=== PATIENT | male | born 1960 | race Caucasian/White ===

== ENCOUNTER → 2016-12-25 | Outpatient (CLI) | payer OTHER ==
[~2016-12-25] MED LIST: ASPI81TA28 PO; CYCL10TA6 PO; MULT-506 PO; OXYC1TAB3 PO
[2016-12-25 11:20] LABS: BLOOD UREA NITROGEN 18 mg/dl (7-18); BUN/CREATININE RATIO 21.4 (10-20); CARBON DIOXIDE 30 mmol/L (21-32); CHLORIDE 106 mmol/L (98-107); CREATININE 0.82 mg/dl (0.60-1.40); GLUCOSE 86 mg/dl (70-99); SODIUM 141 mmol/L (136-145)
[2016-12-25 11:33] LABS: CHOLESTEROL 173 mg/dl (0-200); CHOLESTEROL/HDL RATIO 3.5; HDL CHOLESTEROL 50 mg/dl; LDL CHOLESTEROL CALCULATED 105 mg/dl; TRIGLYCERIDES 91 mg/dl (0-150); VERY LOW DENSITY LIPOPROT CALC 18 mg/dl
== END | disposition home or self-care (01) ==
LOC: C.LABBC 08:35
PROVIDERS: ATTEND Internal Medicine
DX: R68.82 Decreased libido (principal); Z13.1 Encounter for screening for diabetes mellitus; Z13.220 Encounter for screening for lipoid disorders

== ENCOUNTER 2017-06-07 10:07 | Emergency (ER) | payer OTHER ==
[2017-06-07 10:13] VITALS: TEMP 36.6; Ht 188 cm
[2017-06-07] MEDS ORDERED: KETOROLAC TROMETHAMINE 30 MG/ML VIAL IV STA (10:32)
[2017-06-07] MEDS ORDERED: ONDANSETRON INJ 2 MG/ML 2 ML VIAL IV STA (10:32)
[2017-06-07] MEDS ORDERED: CYCLOBENZAPRINE HCL 10 MG TAB PO STA (10:32)
[2017-06-07] MEDS ORDERED: MoRPHine SULFATE 4 MG/ML 1 ML CARP\\VIAL IV STA (10:32)
--- NOTE | 2017-06-07 10:36 | EMERGENCY ROOM VISIT NOTE ---
History Report prepared by Disha: Tali Falcon Under the Supervision of: Dr. Kevan Heard M.D. First contact with patient: 10:26 Chief Complaint: BACK PAIN Stated Complaint: BACK PAIN History of Present Illness The patient is a 57 year old male who presents to the Emergency Room with complaints of worsening lower back pain that began two nights ago. He currently rates his discomfort as a 2/10 in severity. The patient states that Tuesday evening he was putting a baby walker in the basement and states that he felt a disc slip. He states that he immediately laid down on the floor to help alleviate his symptoms. The patient states that yesterday morning he felt somewhat better, but still noted pain. He localizes the pain just right of his lumbar spine. The patient describes his pain as a stabbing pain. He states that he has had similar pain in the past, but denies anything this severe. The patient denies any previous back surgery. He denies any loss of control of his bowel or bladder. The patient states that movement worsens his pain. He denies the pain radiating down his leg. The patient states that he took 600 mg of Ibuprofen this morning that has slightly alleviated his pain. Source of History: patient Onset: two nights ago Position: back (lower) Symptom Intensity: 2/10 Quality: stabbing Timing: other (persistent) Modifying Factors (Worsening): movement Modifying Factors (Relieving): ibuprofen Review of Systems See HPI for pertinent positives & negatives. A total of 10 systems reviewed and were otherwise negative. Past Medical & Surgical Medical Problems: (1) Stroke Surgical Problems: (1) Hx of right knee surgery Family History Cancer Hypertension Social History Smoking Status: Never Smoker Smokeless Tobacco Use: No Alcohol Use: occasionally Marital Status: Housing Status: lives with significant other Occupation Status: employed Current/Historical Medications Scheduled Aspirin (Aspirin Ec), 162 MG PO DAILY Multivitamin (Multivitamin), 1 TAB PO DAILY Scheduled PRN Cyclobenzaprine Hcl (Flexeril), 10 MG PO TID PRN for Muscle Spasms Oxycodone Ir (Roxicodone Ir), 1-2 TAB PO Q4H PRN for Pain Allergies Coded Allergies: No Known Allergies (Unverified , 06/07/17) Physical Exam Vital Signs Date Time Temp Pulse Resp B/P (MAP) Pulse Ox O2 Delivery O2 Flow Rate FiO2 06/07/17 12:31 59 18 117/76 95 Room Air 06/07/17 11:25 63 16 127/80 98 Room Air 06/07/17 10:13 36.6 88 16 121/79 99 Room Air Physical Exam GENERAL: Patient is in no acute distress. HEENT: No acute trauma, normocephalic atraumatic, mucous membranes moist, no nasal congestion, no scleral icterus. NECK: No stridor, no adenopathy, no meningismus, trachea is midline. LUNGS: Clear to auscultation bilaterally, no wheeze, no rhonchi, breath sounds equal. HEART: Without murmurs gallops or rubs, regular rate and rhythm. ABDOMEN: Soft, nontender, bowel sounds positive, no hernias, no peritonitis. BACK: No spinal process tenderness or jayden stepoff, tender to palpate mainly the right lumbar musculature. No rash. EXTREMITIES: No cyanosis or edema, full range of motion of all the joints without pain or difficulty, no signs for acute trauma. NEUROLOGIC: Oriented x 3, no acute motor or sensory deficits, no focal weakness. 2/4 patellar and Achilles reflexes bilaterally. SKIN: No rash, no jaundice, no diaphoresis. Medical Decision & Procedures ER Provider Diagnostic Interpretation: Radiology results as stated below per my review and radiologist interpretation: L-SPINE MIN 4 VIEWS ROUTINE CLINICAL HISTORY: Low back pain. COMPARISON: None FINDINGS: Straightening of the normal lumbar lordosis is noted. No fracture or suspicious lesion is present. There is mild disc space narrowing at L5-S1. The bowel gas pattern is normal. IMPRESSION: 1. No lumbar spine fracture or subluxation. 2. Mild disc space narrowing at L5-S1. Electronically signed by: Von Camejo M.D. 06/07/2017 11:27 AM Dictated Date/Time: 06/07/2017 11:26 AM Medications Administered Medications (Trade) Dose Ordered Sig/Alida Route Start Time Stop Time Status Last Admin Dose Admin Ketorolac Tromethamine (Toradol Inj) 30 mg NOW STAT IV 06/07/17 10:32 06/07/17 10:34 DC 06/07/17 10:49 30 MG Morphine Sulfate (MoRPHine SULFATE INJ) 4 mg NOW STAT IV 06/07/17 10:32 06/07/17 10:34 DC 06/07/17 10:50 4 MG Ondansetron HCl (Zofran Inj) 4 mg NOW STAT IV 06/07/17 10:32 06/07/17 10:34 DC 06/07/17 10:49 4 MG Cyclobenzaprine HCl (Flexeril Tab) 10 mg NOW STAT PO 06/07/17 10:32 06/07/17 10:34 DC 06/07/17 10:49 10 MG ED Course 1027: The patient was evaluated in room B8. A complete history and physical exam was performed. 1032: Ordered Flexeril Tab 10 mg PO, Zofran Inj 4 mg IV, Morphine Sulfate 4 mg IV, Toradol Inj 30 mg IV. 1205: I reevaluated the patient and he is resting comfortably. I discussed the exam findings with him and I discussed the treatment plan. He verbalized complete understanding and agreement. He is ready to go home. Medical Decision The patient is a 57 year old male who presents to the ED with complaints of back pain. Differential diagnoses considered include musculoskeletal pain, fracture, dislocation, sciatica, herniated disc. The patient presents with lower back pain. He was stooping and setting something down when he felt something sort of pull in his back and he has had pain ever since. No difficulty with his bowel or bladder, no pain radiation down his legs. His pain worsens with movements especially when he tries to walk. Films of the lumbar spine were done, there was no fracture or significant bony dislocation. His reflexes were intact distally in both lower extremities. His pain did seem worse with position change. The patient received IV morphine, IV Toradol, IV Zofran. He was given oral Flexeril. He is being discharged with muscle relaxers, pain medication, anti- inflammatories; rest, massage, even physical therapy as an outpatient were suggested. The patient can return for worsening symptoms or if not improving. [place] Drug Monitoring Program Search Results: patient reviewed within database, no issues identified Medication Reconcilliation Current Medication List: was personally reviewed by me Impression Primary Impression: Lumbar back pain Scribe Attestation The scribe's documentation has been prepared under my direction and personally reviewed by me in its entirety. I confirm that the note above accurately reflects all work, treatment, procedures, and medical decision making performed by me. Departure Information Dispostion Home / Self-Care Prescriptions Cyclobenzaprine Hcl (FLEXERIL) 10 Mg Tab 10 MG PO TID Y for Muscle Spasms, #12 TAB Prov: Kevan Heard M.D. 06/07/17 Oxycodone Ir (Roxicodone Ir) 5 Mg Tab 1-2 TAB PO Q4H Y for Pain, #10 TAB Prov: Kevan Heard M.D. 06/07/17 Referrals ,Oleg Guan M.D. Forms HOME CARE DOCUMENTATION FORM, IMPORTANT VISIT INFORMATION Patient Instructions My [facility] Additional Instructions motrin 600 mg 3x per day for 5 days tylenol for addional pain control as directed oxy ir 1 tab every 4 hours for severe pain flexeril 1 tab up to 3x per day for muscle spasm rest heat, massage, gentle stretching follow with tommy walker for a recheck and possible PT referral
[2017-06-07] MEDS ORDERED: ASPI81TA28 PO (11:02)
[2017-06-07] MEDS ORDERED: MULT-506 PO (11:02)
--- NOTE | 2017-06-07 11:29 | DIAGNOSTIC IMAGING REPORT ---
L-SPINE MIN 4 VIEWS ROUTINE CLINICAL HISTORY: Low back pain. COMPARISON: None FINDINGS: Straightening of the normal lumbar lordosis is noted. No fracture or suspicious lesion is present. There is mild disc space narrowing at L5-S1. The bowel gas pattern is normal. IMPRESSION: 1. No lumbar spine fracture or subluxation. 2. Mild disc space narrowing at L5-S1. Electronically signed by: Von Camejo M.D. 06/07/2017 11:27 AM Dictated Date/Time: 06/07/2017 11:26 AM
[2017-06-07] MEDS ORDERED: CYCL10TA6 PO (12:22)
[2017-06-07] MEDS ORDERED: OXYC1TAB3 PO (12:22)
[2017-06-07 12:31] VITALS: BP 117/76; PULSE 59; O2SAT 95
== END 2017-06-07 12:39 | disposition home or self-care (01) ==
LOC: C.EDB 10:08
DX: M54.5 Low back pain (principal); Z86.73 Personal history of transient ischemic attack (TIA), and cerebral infarction without residual deficits; Z80.9 Family history of malignant neoplasm, unspecified; Z82.49 Family history of ischemic heart disease and other diseases of the circulatory system; Z79.82 Long term (current) use of aspirin

== ENCOUNTER → 2018-04-01 | Outpatient (CLI) | payer OTHER ==
[~2018-04-01] MED LIST changes: -CYCL10TA6 PO; -OXYC1TAB3 PO
[2018-04-01 10:58] LABS: BLOOD UREA NITROGEN 14 mg/dl (7-18); CALCIUM 8.9 mg/dl (8.5-10.1); CARBON DIOXIDE 29 mmol/L (21-32); CHOLESTEROL 189 mg/dl (0-200); CREATININE 0.79 mg/dl (0.60-1.40); GLUCOSE 84 mg/dl (70-99); LDL CHOLESTEROL CALCULATED 110 mg/dl; POTASSIUM 4.2 mmol/L (3.5-5.1); SODIUM 139 mmol/L (136-145)
== END | disposition home or self-care (01) ==
LOC: C.LAB1850 08:12
PROVIDERS: ATTEND Internal Medicine
DX: Z00.00 Encounter for general adult medical examination without abnormal findings (principal); R68.82 Decreased libido; Z13.220 Encounter for screening for lipoid disorders

== ENCOUNTER 2020-05-18 13:52 | Inpatient (IN) ==
--- NOTE | 2020-05-18 14:32 | CT Scan Report ---
CT OF THE HEAD WITHOUT CONTRAST CLINICAL HISTORY: Stroke Alert COMPARISON STUDY: No previous studies for comparison. CT DOSE: 614.27 mGy.cm TECHNIQUE: Helical axial images of the head were obtained without IV contrast. Automated exposure con trol was utilized for the study. A dose lowering technique was utilized adhering to the principles o f ALARA. FINDINGS: No acute intracranial hemorrhage, midline shift or mass effect is present. The brain volume is normal. Ventricular system is normal. The basilar cisterns are patent. Note is made of 2 hypodens e foci within the left parietal and frontal lobes there is associated mild volume loss. There are no findings to suggest acute dural sinus thrombosis or acute territorial infarct. There are no significa nt calvarial abnormalities. Visualized portions of the sinuses and mastoid are cells are clear. IMPRESSION: 1. No acute intracranial hemorrhage or mass effect. 2. Two small hypodense foci within the left frontal and parietal lobes with associated volume loss. T hese represent age indeterminate infarcts however the appearance favors subacute to chronic infarcts. ACT 112: Negative or not required by law. Electronically signed by: Von Camejo M.D. 05/18/2020 2:30 PM
[2020-05-18] MEDS ORDERED: OPTIRAY 320 125ml IV ONE (14:42)
[2020-05-18 14:43] LABS: Hematocrit (blood only) 47.3 % (42-52); Hemoglobin 16.4 g/dL (14.0-18.0); Mean Corpuscular Hemoglobin 32.4 pg (25-34); Mean Corpuscular Hgb Conc 34.7 g/dL (32-36); Mean Corpuscular Volume 93.5 fL (80-100); Mean Platelet Volume 9.3 fL (7.4-10.4); Platelet Count 210 K/uL (130-400); RDW Coefficient of Variation 13.1 % (11.5-14.5); RDW Standard Deviation 44.4 fL (36.4-46.3); Red Blood Count 5.06 M/uL (4.7-6.1); White Blood Count 5.84 K/uL (4.8-10.8)
[2020-05-18 14:55] LABS: INR 1.1 (0.9-1.1); Partial Thromboplastin Time 27.2 Seconds (21.0-31.0); Prothrombin Time 11.1 Seconds (9.0-12.0)
--- NOTE | 2020-05-18 14:56 | CT Scan Report ---
CT ANGIOGRAPHY OF THE NECK WITH CONTRAST CLINICAL HISTORY: Stroke. COMPARISON STUDY: No previous studies for comparison. Technique: CT angiography of the carotid and vertebral arteries was obtained using AlgEvolve 320 IV and 3D reconstruction on an independent workstation. NASCET criteria was utilized. Automated exposure c ontrol was utilized for the study. A dose lowering technique was utilized adhering to the principles of ALARA. CT DOSE: 650.05 mGy.cm Findings: Lung apices are clear. There is no cervical lymphadenopathy. There is no cervical spine fra cture. Note is made of mild plaque within the proximal bilateral internal carotid arteries without st enosis. There is no dissection within the major vessels of the neck. No intraluminal thrombus is note d. There is moderate stenosis at the origin of the left vertebral artery and mild stenosis at the chanelle gin the right vertebral artery. IMPRESSION: 1. Moderate stenosis at the origin of the left vertebral artery and mild stenosis at the origin of th e right vertebral artery. 2. Mild atherosclerotic plaque within the proximal bilateral internal carotid artery without associat ed stenosis. ACT 112: Negative or not required by law. Electronically signed by: Von Camejo M.D. 05/18/2020 2:54 PM
[2020-05-18 15:00] LABS: Albumin Level 4.2 gm/dl (3.4-5.0); BUN Creatinine Ratio 16.3 (10-20); Calcium 9.8 mg/dl (8.5-10.1); Creatinine Clr Calc Pharmacy 103.8 ml/min; Est GFR (African American) 108.2; Est GFR (Non-African American) 93.4; Magnesium 2.1 mg/dl (1.8-2.4); Potassium 3.9 mmol/L (3.5-5.1)
[2020-05-18 15:03] LABS: Albumin Globulin Ratio 1.2 (0.9-2); Globulin 3.5 gm/dl (2.5-4.0); Total Protein 7.7 gm/dl (6.4-8.2)
--- NOTE | 2020-05-18 15:06 | CT Scan Report ---
CTA ANGIOGRAPHY OF THE HEAD CLINICAL HISTORY: stroke COMPARISON STUDY: No previous studies for comparison. TECHNIQUE: Helical axial images of the head were obtained following uneventful intravenous administr ation of 120 cc of Optiray 320. Sagittal and coronal reconstructions were viewed as well as maximal i ntensity projections on an independent 3-D workstation. Automated exposure control was utilized for the study. A dose lowering technique was utilized adhering to the principles of ALARA. FINDINGS: No acute intracranial hemorrhage, midline shift or mass effect is present. 2 hypodensities within the left frontal and parietal lobes are again noted, as shown on head CT. Ventricular system i s normal. The basilar cisterns are patent. No central vessel lesion is noted. The bilateral M1, M2, A 1 and A2 segments are patent. There is there is moderate atherosclerotic plaque within bilateral cave rnous carotids without stenosis. The posterior circulation is intact. There is no dissection or aneur ysm within the intracranial vessels. IMPRESSION: 1. No central vessel occlusion. No intracranial aneurysm. 2. Two hypodensities within the left parietal and frontal lobes. These represent age indeterminate in farcts. ACT 112: Negative or not required by law. Electronically signed by: Von Camejo M.D. 05/18/2020 3:04 PM
--- NOTE | 2020-05-18 15:37 | XRay Report ---
XR chest 1V portable CLINICAL HISTORY: stroke alert COMPARISON STUDY: No previous studies for comparison. FINDINGS: Lung volumes are normal. Lungs are clear. There is no pneumothorax or pleural effusion. Car diac size is normal. Mediastinal contours are normal. There is no evidence for pulmonary edema. IMPRESSION: No acute cardiopulmonary findings. ACT 112: Negative or not required by law. Electronically signed by: Von Camejo M.D. 05/18/2020 3:36 PM
[2020-05-18] MEDS ORDERED: CLOPIDOGREL BISULFATE 300 MG TAB PO STA (15:54)
--- NOTE | 2020-05-18 17:15 | History & Physical Report ---
Date of Service May 18, 2020 Assessment & Plan (1) TIA (transient ischemic attack): Presented with 2 hours of left-sided facial numbness, facial droop, and slurred speech. With a history of CVA at age 35 of unknown etiology. Was on aspirin 162 mg once daily when symptoms occurred. No other risk factors for stroke known at this time. He could have occult atrial fibrillation especially given biatrial enlargement seen on ECG. Given that he was hypertensive upon arrival with symptoms and that is now resolved, could be physiologic response to TIA. Symptoms are all resolved now. CT head with likely chronic infarcts noted in the left frontal and parietal from previous stroke which did have right-sided hemiplegia and slurred speech at the time at age 35. These findings on CT head here today would not account for left-sided facial numbness. CT angiogram head is negative. CT angiogram neck with moderate stenosis of origin of left vertebral artery and mild stenosis at origin of right vertebral artery-would not be clinically significant at this time CBC, CMP all completely normal here. ECG with sinus rhythm with first-degree AV block. -Admit to PCU for telemetry monitoring-if no tachyarrhythmia noted during hospitalization, would recommend 30-day cardiac event monitor versus loop recorder upon discharge -Neurology consultation placed -Neurochecks every 2 hours, daily NIH stroke score -Check MRI of the brain with and without contrast to look for acute stroke and/or any intracranial lesion which could cause left-sided facial numbness -Check echocardiogram with bubble study -Loaded with Plavix in the ER as per telemetry stroke neurologist recommendation-we will continue Plavix 75 mg once a day in addition to aspirin 81 mg a day for at least 3-4 weeks and then would likely transition to Plavix monotherapy-but will appreciate neurology consultation -Start normal saline at 125 mL's per hour to keep blood pressure up in case of acute stroke -Would advise discontinuing his home sildenafil as it is a vasodilator -Ordered hypercoagulable work-up which will need to be followed up on after discharge -Check Lyme titer -Check hemoglobin A1c and lipid panel in the morning -Begin atorvastatin 40 mg once daily-intensity could be lowered if total cholesterol less than 100 -PT/OT/speech therapy consultations requested (2) History of CVA (cerebrovascular accident): As noted above, at age 35, presented with right-sided hemiplegia and dysarthria which is now resolved Hypercoagulable work-up ordered (3) First degree AV block: Noted on ECG Telemetry monitoring to look for higher degree blocks (4) Vertebral artery stenosis: Moderate stenosis at the origin of left vertebral artery and mild stenosis at the origin the right vertebral artery Again, would not be clinically significant for today's TIA symptoms Continue antiplatelet therapy and starting high intensity statin (5) Snoring: notes that he snores at night but she is unsure if she is ever heard him have apnea We will observe for nocturnal hypoxia here. Would benefit from outpatient sleep study as untreated sleep apnea can put one at increased risk for atrial fibrillation (6) Seasonal allergies: Takes Zyrtec as needed-not currently needed (7) DVT prophylaxis: Lovenox SQ once daily to begin in the morning after hypercoagulable panel drawn this evening, SCDs Disposition-admit to PCU PT/OT/speech therapy consultations placed but most likely will be able to be discharged to home without any home services History of Present Illness Chief Complaint: Left-sided facial numbness Primary Care Provider: Oleg Gonsalves MD This patient is a 60-year-old male with a history of CVA at age 35 who presents to the ER with an episode of left-sided facial numbness lasting about 2 hours this afternoon. He was walking with his grandson when the symptoms came on. He immediately went back home and his noticed that he had a little bit of a left-sided facial droop and he had some slurred speech. He felt like his lips were numb. He denied any other numbness or tingling anywhere else. He had no weakness or difficulty with walking or balance. He denied any headache now or then. He came to the ER and his symptoms persisted while he was in the waiting room but by the time he got back to a room in the ER, everything had resolved. He denies associated chest pain or heart palpitations, no shortness of breath. No recent illnesses, no fevers or chills. In the ER, a stroke alert was called and a CT of the head showed no hemorrhage or mass-effect and 2 small hypodense foci in the left frontal and parietal lobes with associated volume loss representing age-indeterminate infarct however the appearance favors subacute to chronic infarcts. This would correspond with his previous history of right-sided weakness from his stroke at age 35. He recalls being in the hospital for 11 days during that time and states that he was never told what the exact etiology of his stroke was. He has been on aspirin 162 mg once daily ever since. A CT angiogram of the head neck showed moderate stenosis at the origin of the left vertebral artery and mild stenosis at the origin of the right vertebral artery, but otherwise no hemodynamically significant stenoses. His blood pressure was elevated when he first arrived at 168/100. His ECG showed a sinus rhythm with first-degree AV block with biatrial enlargement. The telemetry stroke neurologist from [place] [facility] to include a hypercoagulable work-up, echocardiogram with bubble study, and MRI. She also recommended loading with Plavix which was done with 300 mg p.o. x1 and remaining on Plavix and aspirin. He will be admitted for further TIA/CVA work-up. Allergies Allergy/AdvReac Type Severity Reaction Status Date / Time No Known Allergies Allergy Verified 05/18/20 14:52 Home Medications Home Medications Medication Instructions Recorded Confirmed Type Zyrtec 10 mg PO QAM PRN 08/11/18 05/18/20 History aspirin 162 mg PO QAM 08/11/18 05/18/20 History multivitamin 1 tab PO QAM 08/11/18 05/18/20 History sildenafil 50 mg PO DAILY PRN 08/11/18 05/18/20 History metronidazole 1 appln TOP BID PRN 05/18/20 05/18/20 History Past Med/Surg History Medical History (Updated 05/18/20 @ 18:48 by Jess Jordan MD) First degree AV block History of CVA (cerebrovascular accident) Seasonal allergies Snoring Stroke 1995--no deficits; reason for aspirin Vertebral artery stenosis Surgical History History of bilateral cataract extraction History of colonoscopy History of repair of anterior cruciate ligament of right knee History of tooth extraction wisdom teeth History of transesophageal echocardiography ([facility]) Family History Father Colon cancer Stroke TIA Sister Malignant neoplasm of brain Grandmother Malignant neoplasm of brain Brother Lymphoma Myocardial infarction Mother Chronic kidney disease (CKD) Social History Smoking Status: Never smoker Second Hand Exposure: No; Hx Alcohol Use: Yes Alcohol type: beer, wine and hard liquor Alcohol Intake Frequency: Monthly or Less Hx Substance Use: No Preferred Language: Beninese Communication Ability: Effective Principal Consultant Required: No Beliefs That Will Affect Care: None Current Living Situation: Spouse current occupational status: employed 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 Physical Exam Constitutional: WD/WN, vitals as above Eyes: PERRL, conjunctivae normal, anicteric sclerae EOM intact bilaterally ENMT: external ear and nose normal, oropharynx normal Ears: no hearing impairment, no external ear abnormality, no EAC abnormality and no TM abnormality Nose: no external nose abnormality and no nasal discharge Mouth: no lip abnormality and no oropharynx abnormality Neck: trachea midline, no thyromegaly Respiratory: normal respiratory effort, lungs clear to auscultation Cardiovascular: RRR, no murmur, no edema Chest (Breasts): Chest: normal inspection of chest Gastrointestinal (Abdomen): normal bowel sounds, soft, nontender, no hepatosplenomegaly Musculoskeletal: Extremities: extremities normal to inspection; no cyanosis and no clubbing Skin: no rashes, warm and dry Neurologic: PERRL, EOMI, accommodation nl, no face palsy, no dysarthria CN's II-XI intact bilaterally, moves all extremities and awake; + abnormal deep tendon reflexes (1+ throughout), no focal motor deficits (Full strength throughout) and not confused Speech / Cognition: normal speech, no expressive aphasia and normal cognition Motor/Sensory: no tremor, no fasciculations, no pronator drift and no sensory deficit (Intact to light touch throughout) Coordination: normal [id number] test and normal rapid alternating movements Psychiatric: A+Ox3, euthymic affect Lymphatic: no lymphedema Results & Data Results & Data ([facility]) Vital Signs (Past 12 Hours) Vital Signs Temp Pulse Pulse Resp BP BP Pulse Ox 05/18/20 17:00 63 21 100/66 98 05/18/20 16:45 59 L 15 98 05/18/20 16:32 58 L 17 99 05/18/20 16:17 57 L 97 05/18/20 16:09 64 18 138/85 100 05/18/20 16:00 61 138/85 05/18/20 15:45 62 64 20 159/95 H 159/95 H 99 05/18/20 15:30 59 L 139/85 99 05/18/20 15:15 61 158/92 H 05/18/20 15:14 61 20 164/97 H 100 05/18/20 15:01 63 164/97 H 05/18/20 15:00 61 165/103 H 05/18/20 14:59 60 20 165/103 H 97 05/18/20 14:50 59 L 149/88 H 05/18/20 14:35 60 163/89 H 05/18/20 14:34 05/18/20 14:30 64 100 05/18/20 14:27 65 168/100 H 05/18/20 14:17 05/18/20 14:13 36.3 C L 64 18 151/89 H 100 Laboratory Results 05/18/20 05/18/20 05/18/20 Range/Units 14:35 14:34 14:34 WBC (4.8-10.8) K/uL RBC (4.7-6.1) M/uL Hgb (14.0-18.0) g/dL Hct (42-52) % MCV (80-100) fL MCH (25-34) pg MCHC (32-36) g/dL RDW Std Deviation (36.4-46.3) fL RDW Coeff of [place] (11.5-14.5) % Plt Count (130-400) K/uL MPV (7.4-10.4) fL PT 11.1 (9.0-12.0) Seconds INR 1.1 (0.9-1.1) APTT 27.2 (21.0-31.0) Seconds PTT Ratio 1.0 Sodium 140 (136-145) mmol/L Potassium 3.9 (3.5-5.1) mmol/L Chloride 104 (98-107) mmol/L Carbon Dioxide 30 (21-32) mmol/L Anion Gap 6.0 (3-11) BUN 14 (7-18) mg/dl Creatinine 0.88 (0.6-1.4) mg/dl Est Cr Clr Drug Dosing 103.8 ml/min Est GFR ( Amer) 108.2 Est GFR (Non-Af Amer) 93.4 BUN/Creatinine Ratio 16.3 (10-20) Glucose 89 (70-99) mg/dl POC Glucose (70-99) mg/dl Calcium 9.8 (8.5-10.1) mg/dl Magnesium 2.1 (1.8-2.4) mg/dl Total Bilirubin 1.0 (0.2-1) mg/dl AST 21 (15-37) U/L ALT 28 (12-78) U/L Alkaline Phosphatase 87 (45-117) U/L Total Protein 7.7 (6.4-8.2) gm/dl Albumin 4.2 (3.4-5.0) gm/dl Globulin 3.5 (2.5-4.0) gm/dl Albumin/Globulin Ratio 1.2 (0.9-2) Lyme Disease IgG Ab Pending Lyme Disease IgM Ab Pending 05/18/20 05/18/20 Range/Units 14:34 14:29 WBC 5.84 (4.8-10.8) K/uL RBC 5.06 (4.7-6.1) M/uL Hgb 16.4 (14.0-18.0) g/dL Hct 47.3 (42-52) % MCV 93.5 (80-100) fL MCH 32.4 (25-34) pg MCHC 34.7 (32-36) g/dL RDW Std Deviation 44.4 (36.4-46.3) fL RDW Coeff of [place] 13.1 (11.5-14.5) % Plt Count 210 (130-400) K/uL MPV 9.3 (7.4-10.4) fL PT (9.0-12.0) Seconds INR (0.9-1.1) APTT (21.0-31.0) Seconds PTT Ratio Sodium (136-145) mmol/L Potassium (3.5-5.1) mmol/L Chloride (98-107) mmol/L Carbon Dioxide (21-32) mmol/L Anion Gap (3-11) BUN (7-18) mg/dl Creatinine (0.6-1.4) mg/dl Est Cr Clr Drug Dosing ml/min Est GFR ( Amer) Est GFR (Non-Af Amer) BUN/Creatinine Ratio (10-20) Glucose (70-99) mg/dl POC Glucose 88 (70-99) mg/dl Calcium (8.5-10.1) mg/dl Magnesium (1.8-2.4) mg/dl Total Bilirubin (0.2-1) mg/dl AST (15-37) U/L ALT (12-78) U/L Alkaline Phosphatase (45-117) U/L Total Protein (6.4-8.2) gm/dl Albumin (3.4-5.0) gm/dl Globulin (2.5-4.0) gm/dl Albumin/Globulin Ratio (0.9-2) Lyme Disease IgG Ab Lyme Disease IgM Ab Diagnostic Findings Chest x-ray image personally reviewed by me and agree with the following report: XR chest 1V portable CLINICAL HISTORY: stroke alert COMPARISON STUDY: No previous studies for comparison. FINDINGS: Lung volumes are normal. Lungs are clear. There is no pneumothorax or pleural effusion. Cardiac size is normal. Mediastinal contours are normal. There is no evidence for pulmonary edema. IMPRESSION: No acute cardiopulmonary findings. CT head noncontrast: IMPRESSION: 1. No acute intracranial hemorrhage or mass effect. 2. Two small hypodense foci within the left frontal and parietal lobes with associated volume loss. These represent age indeterminate infarcts however the appearance favors subacute to chronic infarcts. CT angiogram head: IMPRESSION: 1. No central vessel occlusion. No intracranial aneurysm. 2. Two hypodensities within the left parietal and frontal lobes. These represent age indeterminate infarcts. CT angiogram neck: IMPRESSION: 1. Moderate stenosis at the origin of the left vertebral artery and mild stenosis at the origin of the right vertebral artery. 2. Mild atherosclerotic plaque within the proximal bilateral internal carotid artery without associated stenosis. ECG Additional Comments: ECG on 05/18/2020 at 1434 with sinus rhythm with first- degree AV block, rate 61, biatrial enlargement noted by peaked P waves in lead II and biphasic P waves in lead V1 Code Status & VTE Plan Code Status Full code VTE Prophylaxis Plan VTE Prophylaxis will be ordered: Yes PG Care Time/CCT Total # of Minutes Spent Total Time Spent with Patient: Total time spent is greater than 50% in coordination of care (as documented) at patient's floor/unit and/or counseling patient: Coding Level of Care Code 47584 Initial Inpt Care Lvl 3 Diagnoses TIA (transient ischemic attack) G45.9 History of CVA (cerebrovascular accident) Z86.73 First degree AV block I44.0 Vertebral artery stenosis I65.09 Snoring R06.83 Seasonal allergies J30.2 DVT prophylaxis Z29.9
[2020-05-18 18:51] LABS: Lyme Ab IgM w/WB Rflx Negative (Negative)
[2020-05-18 18:52] LABS: Lyme Ab IgG w/WB Rflx Negative (Negative)
[2020-05-18] MEDS: SODIUM CHLORIDE 0.9% 1000ML 1,000 ML IV SCH (18:52)
[2020-05-18] MEDS ORDERED: GADOBUTROL 65ML VIAL IV ONE (20:46)
[2020-05-18] MEDS ORDERED: PHARMACIST DISCHARGE MED REC CONSULT PRN (21:13)
[2020-05-18] MEDS ORDERED: ACETAMINOPHEN 325 MG TAB PO PRN (21:13)
[2020-05-18] MEDS ORDERED: metroNIDAZOLE 0.75% TOPICAL GEL 45 GM TUBE TOP PRN (21:13)
[2020-05-18] MEDS ORDERED: ALUMINUM/MAGNESIUM SUSP 30 ML UDC PO PRN (21:13)
[2020-05-18] MEDS ORDERED: CETIRIZINE HCL 10 MG TABLET PO PRN (21:13)
[2020-05-18] MEDS ORDERED: POLYETHYLENE (MIRALAX) 17 GM PACK PO PRN (21:13)
[2020-05-18] MEDS ORDERED: ONDANSETRON INJ 2 MG/ML 2 ML VIAL IV PRN (21:13)
[2020-05-18] MEDS ORDERED: MAGNESIUM HYDROXIDE SUSP 30 ML UDC PO PRN (21:13)
[2020-05-18] MEDS ORDERED: IBUPROFEN 600 MG TAB PO PRN (21:13)
--- NOTE | 2020-05-18 22:22 | Emergency Department Note ---
History of Present Illness General Chief complaint: Stroke/CVA Symptoms Stated complaint: THINKS HAVING STROKE, HX STROKES Time Seen by Provider: 05/18/20 14:24 Source: patient, family and RN notes reviewed Mode of arrival: ambulatory Limitations: no limitations History of Present Illness Provider complaint: Stroke symptoms This patient is a 60-year-old male who presents emergency department with complaints of left-sided facial fullness, numbness and facial droop. He states he was walking at approximately 12:00 with his grandchild when he had sudden onset of the left-sided facial symptoms. He denies any symptoms in the extremities and states his speech was probably affected somewhat. He was able to speak clearly but was a bit more deliberate. Patient denies any confusion or ambulatory dysfunction. He denies any unilateral weakness. Patient states he has a remote history of stroke in the for which the etiology was never determined. Patient states he has been well recently with no fevers, chills, chest pain or shortness of breath. He denies any headache or vomiting. Home Medications Home Medications Medication Instructions Recorded Confirmed Type Zyrtec 10 mg PO QAM PRN 08/11/18 05/20/20 History multivitamin 1 tab PO QAM 08/11/18 05/20/20 History metronidazole 1 appln TOP BID PRN 05/18/20 05/20/20 History aspirin 81 mg PO QAM 21 Days #21 tab 05/19/20 05/20/20 Rx clopidogrel 75 mg PO QAM 30 Days #30 tab 05/19/20 05/20/20 Rx Allergies Allergy/AdvReac Type Severity Reaction Status Date / Time No Known Allergies Allergy Verified 05/18/20 14:52 Past Med/Surg History Medical History First degree AV block History of CVA (cerebrovascular accident) Seasonal allergies Snoring Stroke 1995--no deficits; reason for aspirin Vertebral artery stenosis Surgical History History of bilateral cataract extraction History of colonoscopy History of repair of anterior cruciate ligament of right knee History of tooth extraction wisdom teeth History of transesophageal echocardiography ([facility]ADELINE) Family History Father , age 83 with liver cancer complications Colon cancer Stroke TIA Sister Malignant neoplasm of brain Grandmother Malignant neoplasm of brain Brother Lymphoma Myocardial infarction Mother , age 85 Chronic kidney disease (CKD) Hypertension Social History Smoking Status: Never smoker Second Hand Exposure: No; Hx Alcohol Use: Yes Alcohol type: beer, wine and hard liquor Alcohol Intake Frequency: Monthly or Less Alcohol Intake Frequency Comment: 3-4 drinks of alcohol per week at most. Never more than 1-2 per day. 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 and A total of 10 systems reviewed and were otherwise negative Physical Exam Vital Signs Vital Signs - 24 hr 05/18/20 14:13 05/18/20 14:17 05/18/20 14:27 Temperature 36.3 C L Temperature Source Oral Pulse Rate 64 65 Pulse Rate [Left Finger] Pulse Rate from SpO2 Sensor 65 Respiratory Rate 18 Respiratory Effort / Characteristics Non-Labored Spontaneous Respiratory Pattern Regular Blood Pressure 151/89 H 168/100 H Blood Pressure [Left Arm] Blood Pressure Mean 109 125 Blood Pressure Mean [Left Arm] Blood Pressure Position Sitting Pulse Oximetry 100 99 99 Oxygen Delivery Method Room Air Room Air Room Air Sepsis Recent Fever Within 48 Hours No Sepsis New/Unexplained Change in Mental Status N/A Sepsis Action Taken by Nursing No Action Required 05/18/20 14:30 05/18/20 14:34 05/18/20 14:35 Temperature Temperature Source Pulse Rate 64 60 Pulse Rate [Left Finger] Pulse Rate from SpO2 Sensor 65 62 Respiratory Rate Respiratory Effort / Characteristics Respiratory Pattern Blood Pressure 163/89 H Blood Pressure [Left Arm] Blood Pressure Mean 110 Blood Pressure Mean [Left Arm] Blood Pressure Position Pulse Oximetry 100 99 99 Oxygen Delivery Method Room Air Room Air Room Air Sepsis Recent Fever Within 48 Hours Sepsis New/Unexplained Change in Mental Status Sepsis Action Taken by Nursing 05/18/20 14:50 05/18/20 14:59 05/18/20 15:00 Temperature Temperature Source Pulse Rate 59 L 61 Pulse Rate [Left Finger] 60 Pulse Rate from SpO2 Sensor 59 L 61 Respiratory Rate 20 Respiratory Effort / Characteristics Respiratory Pattern Blood Pressure 149/88 H 165/103 H Blood Pressure [Left Arm] 165/103 H Blood Pressure Mean 103 114 Blood Pressure Mean [Left Arm] 123 Blood Pressure Position Pulse Oximetry 99 97 99 Oxygen Delivery Method Room Air Room Air Sepsis Recent Fever Within 48 Hours Sepsis New/Unexplained Change in Mental Status Sepsis Action Taken by Nursing 05/18/20 15:01 05/18/20 15:14 05/18/20 15:15 Temperature Temperature Source Pulse Rate 63 61 Pulse Rate [Left Finger] 61 Pulse Rate from SpO2 Sensor 63 61 Respiratory Rate 20 Respiratory Effort / Characteristics Respiratory Pattern Blood Pressure 164/97 H 158/92 H Blood Pressure [Left Arm] 164/97 H Blood Pressure Mean 122 118 Blood Pressure Mean [Left Arm] 119 Blood Pressure Position Pulse Oximetry 99 100 99 Oxygen Delivery Method Room Air Sepsis Recent Fever Within 48 Hours Sepsis New/Unexplained Change in Mental Status Sepsis Action Taken by Nursing 05/18/20 15:30 05/18/20 15:45 05/18/20 16:00 Temperature Temperature Source Pulse Rate 59 L 62 61 Pulse Rate [Left Finger] 64 Pulse Rate from SpO2 Sensor 59 L 62 59 L Respiratory Rate 20 Respiratory Effort / Characteristics Respiratory Pattern Blood Pressure 139/85 159/95 H 138/85 Blood Pressure [Left Arm] 159/95 H Blood Pressure Mean 97 116 101 Blood Pressure Mean [Left Arm] 116 Blood Pressure Position Pulse Oximetry 99 99 99 Oxygen Delivery Method Room Air Sepsis Recent Fever Within 48 Hours Sepsis New/Unexplained Change in Mental Status Sepsis Action Taken by Nursing 05/18/20 16:09 05/18/20 16:17 05/18/20 16:32 Temperature Temperature Source Pulse Rate 57 L 58 L Pulse Rate [Left Finger] 64 Pulse Rate from SpO2 Sensor 57 L 58 L Respiratory Rate 18 17 Respiratory Effort / Characteristics Respiratory Pattern Blood Pressure Blood Pressure [Left Arm] 138/85 Blood Pressure Mean Blood Pressure Mean [Left Arm] 102 Blood Pressure Position Pulse Oximetry 100 97 99 Oxygen Delivery Method Room Air Sepsis Recent Fever Within 48 Hours Sepsis New/Unexplained Change in Mental Status Sepsis Action Taken by Nursing 05/18/20 16:45 05/18/20 17:00 05/18/20 17:15 Temperature Temperature Source Pulse Rate 59 L 63 63 Pulse Rate [Left Finger] Pulse Rate from SpO2 Sensor 60 64 64 Respiratory Rate 15 21 18 Respiratory Effort / Characteristics Respiratory Pattern Blood Pressure 100/66 Blood Pressure [Left Arm] Blood Pressure Mean 77 Blood Pressure Mean [Left Arm] Blood Pressure Position Pulse Oximetry 98 98 98 Oxygen Delivery Method Sepsis Recent Fever Within 48 Hours Sepsis New/Unexplained Change in Mental Status Sepsis Action Taken by Nursing 05/18/20 17:30 05/18/20 17:45 Temperature Temperature Source Pulse Rate 67 63 Pulse Rate [Left Finger] Pulse Rate from SpO2 Sensor 68 63 Respiratory Rate 20 17 Respiratory Effort / Characteristics Respiratory Pattern Blood Pressure 100/61 Blood Pressure [Left Arm] Blood Pressure Mean 74 Blood Pressure Mean [Left Arm] Blood Pressure Position Pulse Oximetry 98 98 Oxygen Delivery Method Sepsis Recent Fever Within 48 Hours Sepsis New/Unexplained Change in Mental Status Sepsis Action Taken by Nursing Vital signs reviewed. General: Well-appearing 60 yo male, in no significant distress. HEENT: No scleral icterus, PERRLA, neck supple. Atraumatic. Cardiovascular: Regular rate and rhythm, no extra sounds. Pulmonary: Clear to auscultation bilaterally, normal work of breathing. Abdomen: Soft, nontender, nondistended, positive bowel sounds. Musculoskeletal: Atraumatic, no peripheral edema. Neurologic: Patient awake alert and oriented x 3, ? slight L nasolabial fold flattening when speaking, none with full smile, full strength in all 4 extremities. Cranial nerves 2 through 12 grossly intact. Speech deliberate but intact. Neg pronator drift, finger to nose intact. Skin: Warm, dry, no rash Course Administered Medications Discontinued Medications Aspirin (Aspirin 81 Mg Ectab) 81 mg PO [facility] Stop: 06/18/20 08:59 Last Admin: 05/19/20 08:14 Dose: 81 mg Documented by: [id number] Atorvastatin Calcium (Atorvastatin 40 Mg Tab) 40 mg PO [facility] Stop: 06/18/20 08:59 Last Admin: 05/19/20 08:14 Dose: 40 mg Documented by: [id number] Clopidogrel Bisulfate (Clopidogrel Bisulfate 300 Mg Tab) 300 mg PO [facility] Stop: 05/18/20 15:55 Last Admin: 05/18/20 16:19 Dose: 300 mg Documented by: [id number] Clopidogrel Bisulfate (Clopidogrel Bisulfate 75 Mg Tab) 75 mg PO [facility] Stop: 06/18/20 08:59 Last Admin: 05/19/20 08:14 Dose: 75 mg Documented by: [id number] Enoxaparin Sodium (Enoxaparin Inj 40 Mg/0.4 Ml Syr) 40 mg SQ [facility] Stop: 06/18/20 08:59 Last Admin: 05/19/20 08:13 Dose: 40 mg Documented by: [id number] Gadobutrol (Gadobutrol 65ml Vial) 8.5 ml IV ONCE ONE Stop: 05/18/20 20:47 Last Admin: 05/18/20 20:46 Dose: 8.5 ml Documented by: [id number] Sodium Chloride (Nss 1000ml) 1,000 mls @ 125 mls/hr IV .Q8H SHAYLA Stop: 06/17/20 17:47 Last Admin: 05/19/20 03:24 Dose: 125 mls/hr Documented by: [id number] Infusion: 05/19/20 03:24 Dose: 0 mls/hr Documented by: [id number] Admin: 05/18/20 18:52 Dose: 125 mls/hr Documented by: [id number] Ibuprofen (Ibuprofen 600 Mg Tab) 600 mg PO Q6H PRN PRN Reason: headache Stop: 06/17/20 21:12 Last Admin: 05/18/20 21:25 Dose: 600 mg Documented by: [id number] Ioversol (Optiray 320 125ml) 120 ml IV ONCE ONE Stop: 05/18/20 14:43 Last Admin: 05/18/20 14:43 Dose: 120 ml Documented by: [id number] Multivitamins (Multivitamin Tab) [facility] Stop: 06/18/20 08:59 Last Admin: 05/19/20 08:14 Dose: 1 tab Documented by: [id number] Medical Decision Making Differential Diagnosis Differential includes acute coronary syndrome, myocardial infarction, CVA, TIA, anemia, infection/Miller's, pneumonia, UTI, pyelonephritis, poor nutrition, dehydration, electrolyte disturbance,hypoglycemia. Medical Records Attestation: I reviewed the patient's medical records. Home Medications Current Medication List: was personally reviewed by me Laboratory Data Attestation: I reviewed the patient's lab results. Result diagrams: 05/19/20 06:43 05/19/20 06:43 Lab Results 05/18/20 05/18/20 05/18/20 Range/Units 14:29 14:34 14:34 WBC 5.84 (4.8-10.8) K/uL RBC 5.06 (4.7-6.1) M/uL Hgb 16.4 (14.0-18.0) g/dL Hct 47.3 (42-52) % MCV 93.5 (80-100) fL MCH 32.4 (25-34) pg MCHC 34.7 (32-36) g/dL RDW Std Deviation 44.4 (36.4-46.3) fL RDW Coeff of Colby 13.1 (11.5-14.5) % Plt Count 210 (130-400) K/uL MPV 9.3 (7.4-10.4) fL PT 11.1 (9.0-12.0) Seconds INR 1.1 (0.9-1.1) APTT 27.2 (21.0-31.0) Seconds PTT Ratio 1.0 Sodium (136-145) mmol/L Potassium (3.5-5.1) mmol/L Chloride (98-107) mmol/L Carbon Dioxide (21-32) mmol/L Anion Gap (3-11) BUN (7-18) mg/dl Creatinine (0.6-1.4) mg/dl Est Cr Clr Drug Dosing ml/min Est GFR ( Amer) Est GFR (Non-Af Amer) BUN/Creatinine Ratio (10-20) Glucose (70-99) mg/dl POC Glucose 88 (70-99) mg/dl Calcium (8.5-10.1) mg/dl Magnesium (1.8-2.4) mg/dl Total Bilirubin (0.2-1) mg/dl AST (15-37) U/L ALT (12-78) U/L Alkaline Phosphatase (45-117) U/L Total Protein (6.4-8.2) gm/dl Albumin (3.4-5.0) gm/dl Globulin (2.5-4.0) gm/dl Albumin/Globulin Ratio (0.9-2) Lyme Disease IgG Ab (Negative) Lyme Disease IgM Ab (Negative) 05/18/20 05/18/20 Range/Units 14:34 14:35 WBC (4.8-10.8) K/uL RBC (4.7-6.1) M/uL Hgb (14.0-18.0) g/dL Hct (42-52) % MCV (80-100) fL MCH (25-34) pg MCHC (32-36) g/dL RDW Std Deviation (36.4-46.3) fL RDW Coeff of Colby (11.5-14.5) % Plt Count (130-400) K/uL MPV (7.4-10.4) fL PT (9.0-12.0) Seconds INR (0.9-1.1) APTT (21.0-31.0) Seconds PTT Ratio Sodium 140 (136-145) mmol/L Potassium 3.9 (3.5-5.1) mmol/L Chloride 104 (98-107) mmol/L Carbon Dioxide 30 (21-32) mmol/L Anion Gap 6.0 (3-11) BUN 14 (7-18) mg/dl Creatinine 0.88 (0.6-1.4) mg/dl Est Cr Clr Drug Dosing 103.8 ml/min Est GFR ( Amer) 108.2 Est GFR (Non-Af Amer) 93.4 BUN/Creatinine Ratio 16.3 (10-20) Glucose 89 (70-99) mg/dl POC Glucose (70-99) mg/dl Calcium 9.8 (8.5-10.1) mg/dl Magnesium 2.1 (1.8-2.4) mg/dl Total Bilirubin 1.0 (0.2-1) mg/dl AST 21 (15-37) U/L ALT 28 (12-78) U/L Alkaline Phosphatase 87 (45-117) U/L Total Protein 7.7 (6.4-8.2) gm/dl Albumin 4.2 (3.4-5.0) gm/dl Globulin 3.5 (2.5-4.0) gm/dl Albumin/Globulin Ratio 1.2 (0.9-2) Lyme Disease IgG Ab Negative (Negative) Lyme Disease IgM Ab Negative (Negative) Imaging Data Radiologist's Impression: XR chest 1V portable CLINICAL HISTORY: stroke alert COMPARISON STUDY: No previous studies for comparison. FINDINGS: Lung volumes are normal. Lungs are clear. There is no pneumothorax or pleural effusion. Cardiac size is normal. Mediastinal contours are normal. There is no evidence for pulmonary edema. IMPRESSION: No acute cardiopulmonary findings. ACT 112: Negative or not required by law. Electronically signed by: Von Camejo M.D. 05/18/2020 3:36 PM Dictated: 05/18/20 1535 Transcribed: 05/18/[address] OF THE HEAD WITHOUT CONTRAST CLINICAL HISTORY: Stroke Alert COMPARISON STUDY: No previous studies for comparison. CT DOSE: 614.27 mGy.cm TECHNIQUE: Helical axial images of the head were obtained without IV contrast. Automated exposure control was utilized for the study. A dose lowering technique was utilized adhering to the principles of ALARA. FINDINGS: No acute intracranial hemorrhage, midline shift or mass effect is present. The brain volume is normal. Ventricular system is normal. The basilar cisterns are patent. Note is made of 2 hypodense foci within the left parietal and frontal lobes there is associated mild volume loss. There are no findings to suggest acute dural sinus thrombosis or acute territorial infarct. There are no significant calvarial abnormalities. Visualized portions of the sinuses and mastoid are cells are clear. IMPRESSION: 1. No acute intracranial hemorrhage or mass effect. 2. Two small hypodense foci within the left frontal and parietal lobes with associated volume loss. These represent age indeterminate infarcts however the appearance favors subacute to chronic infarcts. ACT 112: Negative or not required by law. Electronically signed by: Von Camejo M.D. 05/18/2020 2:30 PM Dictated: 05/18/20 1424 Transcribed: 05/18/20 1427 CTA ANGIOGRAPHY OF THE HEAD CLINICAL HISTORY: stroke COMPARISON STUDY: No previous studies for comparison. TECHNIQUE: Helical axial images of the head were obtained following uneventful intravenous administration of 120 cc of Optiray 320. Sagittal and coronal reconstructions were viewed as well as maximal intensity projections on an independent 3-D workstation. Automated exposure control was utilized for the study. A dose lowering technique was utilized adhering to the principles of ALARA. FINDINGS: No acute intracranial hemorrhage, midline shift or mass effect is present. 2 hypodensities within the left frontal and parietal lobes are again noted, as shown on head CT. Ventricular system is normal. The basilar cisterns are patent. No central vessel lesion is noted. The bilateral M1, M2, A1 and A2 segments are patent. There is there is moderate atherosclerotic plaque within bilateral cavernous carotids without stenosis. The posterior circulation is intact. There is no dissection or aneurysm within the intracranial vessels. IMPRESSION: 1. No central vessel occlusion. No intracranial aneurysm. 2. Two hypodensities within the left parietal and frontal lobes. These represent age indeterminate infarcts. ACT 112: Negative or not required by law. Electronically signed by: Von Camejo M.D. 05/18/2020 3:04 PM Dictated: 05/18/20 145 Transcribed: 05/18/201457 CT ANGIOGRAPHY OF THE NECK WITH CONTRAST CLINICAL HISTORY: Stroke. COMPARISON STUDY: No previous studies for comparison. Technique: CT angiography of the carotid and vertebral arteries was obtained using OptiraSokolin 320 IV and 3D reconstruction on an independent workstation. NASCET criteria was utilized. Automated exposure control was utilized for the study. A dose lowering technique was utilized adhering to the principles of ALARA. CT DOSE: 650.05 mGy.cm Findings: Lung apices are clear. There is no cervical lymphadenopathy. There is no cervical spine fracture. Note is made of mild plaque within the proximal bilateral internal carotid arteries without stenosis. There is no dissection within the major vessels of the neck. No intraluminal thrombus is noted. There is moderate stenosis at the origin of the left vertebral artery and mild stenosis at the origin the right vertebral artery. IMPRESSION: 1. Moderate stenosis at the origin of the left vertebral artery and mild stenosis at the origin of the right vertebral artery. 2. Mild atherosclerotic plaque within the proximal bilateral internal carotid artery without associated stenosis. ACT 112: Negative or not required by law. Electronically signed by: Von Camejo M.D. 05/18/2020 2:54 PM Dictated: 05/18/201449 Transcribed: 05/18/201449 ECG Data Attestation: I personally reviewed and interpreted this ECG as follows: Indication: + other (weakness) Rate (beats per minute): 61 Rhythm: + sinus rhythm ECG Intervals/blocks: + First degree AV block and + Normal QT-c (426) ECG [place]: + Normal ECG ST segments: + Normal ST segments ECG Findings: + Other (biatrial enlargement) Blood Pressure Blood Pressure Findings: Normal blood pressure Blood Pressure Disposition: did not require urgent referral MDM Narrative This pt was evaluated after a stroke alert had been called by nursing from triage. Upon my arrival to the room, pt was in CT. A call was made to add on CTA however pt was on his way back to the ED. On my evaluation pt had minimal if any symptoms remaining, ? L nasolabial fold flattening. IV access was obtai lily and an order for cardiac monitoring was placed. Pt was noted to be in a sinus rhythm with first degree AV block at 68 bpm. He takes ASA daily and denies missing. He was discussed with telestroke physician Dr Reno as pt has remote h/o stroke and is an otherwise well appearing and very functional 60 yo. He was sent back for CTA and felt not to be a candidate for TPA as sx had completely resolved per neurology eval. She has recommeneded "an extensive" stroke eval including a bubble study and hypercoag workup given history. Pt was given the plavix load of 300 mg orally and d/w Dr Jordan of for admission. He and his were made aware, questions answered, and agreed with the plan. Impression & Plan Brain TIA, H/O: CVA (cerebrovascular accident) Discharge Plan Visit Data Chief Complaint: Stroke/CVA Symptoms Stated Complaint: THINKS HAVING STROKE, HX STROKES ED Provider: Palak Mary Discharge Problem: Brain TIA, H/O: CVA (cerebrovascular accident) Patient Disposition: Admitted As Inpatient Condition: Good Discharge Instructions Interventions: ED Discharge Assessment Last Done: 05/18/20 18:54
[2020-05-19] MEDS: SODIUM CHLORIDE 0.9% 1000ML 1,000 ML IV SCH (03:24)
[2020-05-19 07:04] LABS: Basophils # (auto) 0.02 K/uL (0-0.2); Basophils % (auto) 0.4 %; Eosinophils # (auto) 0.09 K/uL (0-0.5); Eosinophils % (auto) 1.9 %; Hematocrit (blood only) 43.4 % (42-52); Immature Granulocytes # (auto) 0.01 K/uL (0.00-0.02); Immature Granulocytes % (auto) 0.2 %; Lymphocytes # (auto) 1.42 K/uL (1.2-3.4); Lymphocytes % (auto) 30.5 %; Mean Corpuscular Hemoglobin 32.3 pg (25-34); Mean Corpuscular Hgb Conc 34.6 g/dL (32-36); Mean Corpuscular Volume 93.5 fL (80-100); Mean Platelet Volume 9.4 fL (7.4-10.4); Monocytes # (auto) 0.37 K/uL (0.11-0.59); Neutrophils # (auto) 2.74 K/uL (1.4-6.5); Platelet Count 181 K/uL (130-400); RDW Coefficient of Variation 13.2 % (11.5-14.5); RDW Standard Deviation 45.3 fL (36.4-46.3); Red Blood Count 4.64 M/uL (4.7-6.1); White Blood Count 4.65 K/uL (4.8-10.8)
[2020-05-19 07:36] LABS: BUN Creatinine Ratio 14.8 (10-20); Calcium 8.4 mg/dl (8.5-10.1); Creatinine Clr Calc Pharmacy 142.7 ml/min; Est GFR (African American) 123.3; Est GFR (Non-African American) 106.4; Potassium 3.7 mmol/L (3.5-5.1)
--- NOTE | 2020-05-19 07:39 | Magnetic Resonance Report ---
Brain MRI WITH AND WITHOUT CONTRAST HISTORY: TIA, left facial numbness TECHNIQUE: Multiplanar multisequence MRI of the brain was performed both before and after the intrave nous administration of contrast. COMPARISON STUDY: Head CT 05/18/2020. FINDINGS: A single punctate foci of restricted diffusion seen within the right posterior frontal lobe on image 19 of the DWI sequences. This is consistent with an acute infarct. The midline structures a re intact. There is no mass, hematoma, midline shift. Postcontrast sequences show no areas of abnorma l enhancement. Old lacunar infarcts are seen within the bilateral cerebellar hemispheres. There are o ld small infarct within the left frontal and parietal lobes with mild surrounding gliosis. The major vascular flow voids at the skull base are well-maintained. There are few scattered punctate foci of T 2 hyperintensity seen within the paratracheal white matter. These favor mild microvascular ischemic c hange. The paranasal sinuses and mastoid air cells are clear. Evidence for prior lens replacement. IMPRESSION: 1. A single punctate focus of restricted diffusion seen within the right posterior frontal lobe consi stent with an acute infarct. This measures 4 mm. 2. Old infarcts as described above. ACT 112: Negative or not required by law. Electronically signed by: Arya Graf M.D. 05/19/2020 7:38 AM
[2020-05-19] MEDS ORDERED: CLOPIDOGREL BISULFATE 75 MG TAB PO SCH (09:00)
[2020-05-19] MEDS ORDERED: ATORVASTATIN 40 MG TAB PO SCH (09:00)
[2020-05-19] MEDS ORDERED: ASPIRIN 81 MG ECTAB PO SCH (09:00)
[2020-05-19] MEDS ORDERED: ENOXAPARIN INJ 40 MG/0.4 ML SYR SQ SCH (09:00)
[2020-05-19] MEDS ORDERED: MULTIVITAMIN TAB PO SCH (09:00)
[2020-05-19 09:57] LABS: Estimated Average Glucose 103 mg/dl; Hemoglobin A1C 5.2 % (4.5-5.6)
--- NOTE | 2020-05-19 10:06 | Neurology Consultation ---
Date of Consultation May 19, 2020 Assessment & Plan (1) Acute CVA (cerebrovascular accident): (2) History of CVA (cerebrovascular accident): (3) Vertebral artery stenosis: (4) Snoring: patient has a history of a tiny acute right posterior frontal CVA occurring May 18. He had some left facial numbness, warmth sensation, and weakness as well as some left anterior neck numbness. It involved the V2 and V3 distributions but not V1. There may have been some dysarthria or motor speech issue but all of these symptoms resolved by 2 or 3 hours. currently he is asymptomatic with no focal neurologic findings, meningeal signs, or encephalopathy. MRI shows the tiny stroke. There is also mild old small vessel ischemic changes scattered as well as the old stroke age 35. In 1995 the patient had a left middle cerebral artery distribution stroke resulting in right-sided weakness and speech issues which resolved. He is left with 2 small areas of encephalomalacia in the posterior left frontal and parietal head regions. Risk factors for stroke may be hypertension but he does not have a history of this. Genetic factors may play a role as well. He has no history of other clotting but clotting abnormalities need to be considered. The patient has [id number] vertebral artery stenosis at the origins, left greater than right side, which would have nothing to do with his current stroke or symptoms. The patient has a history of snoring and may have sleep apnea which would be a risk factor for stroke and small vessel ischemic disease. Recommendations: 1. Keep on 81 mg aspirin tablet +75 mg clopidogrel daily for 3 weeks, then discontinue the aspirin and stay on clopidogrel alone. 2. monitor blood pressure controlling as necessary. 3. Evaluate for obstructive sleep apnea 4. echocardiogram/ MADELINE is pending. 5. Clotting laboratory studies are pending as well. I can follow as an outpatient in 1-2 weeks. Overall, I spent a total of 110 minutes with this case including review of records, review of films, direct evaluation the patient at bedside, and discussing the case with the patient and at bedside, the RN, and Dr. Joe, including differential diagnosis and treatment options. History of Present Illness Reason for Consultation: Patient is a 60-year-old, who was asked to see at the request of Dr. Jordan, for neurologic consultation regarding TIA versus other. Requesting Physician: Dr. Jordan Attending Physician: Dre Joe, DO History of Present Illness patient had history of right-sided weakness with left hemispheric stroke in the middle cerebral artery distribution and age 35 in 1995. all his deficits of right-sided weakness and speech resolved after a couple of weeks and he was put on a full aspirin tablet daily. He had some GI irritation and bruising to this but then switched himself to two 81 mg aspirins daily which helped his bruising. He has been on this dose ever since. He has no history of cigarette smoking, hypertension, diabetes, or dyslipidemia. He has no cardiac abnormalities although there is remote history of 1st degree AV block. His , who is present at bedside, says he has been snoring at night for 15 years and may have some pauses in his breathing. Patient was in his usual state of health with no illness when on May 18, around noon he went out to walk with his grandson. It was warm out but he was not overheated. He had not had much to eat or drink recently but he had a full breakfast that morning. While walking he had the sudden onset of the feeling of warmth and numbness along the left side of his face including cheek and jaw line. This extended into left neck. There was no pain. He got into the car and drove home. At home he was noted to be with some speech issues (perhaps hesitate or even slow to answer). his noted a partial facial droop at the corner of the mouth left but did not see nearly as distinct as it did back he was 35, when he had a full facial droop. He arrived to the emergency room May 18 at 1413, with a temperature of 36.3, pulse 64 regular, respiratory rate 18, blood pressure 151/89, and O2 saturation 100%. A Little later on his blood pressure was 168/100 In the emergency room his symptoms were much improved and had no focal deficits on examination according to the emergency room physician. He was given a clopidogrel loading dose of 300 mg. CBC, Chem profile, Lyme antibody titers, TSH were all normal. Chest x-ray was unremarkable. CT scan of the head showed no acute changes. There was 2 small old areas of encephalomalacia in the left parietal and left frontal regions consistent with his previous stroke. CT angiography of the head was unremarkable. CT angiography of the neck showed a moderate left vertebral artery stenosis at the origin with a mild similar process on the right. MRI of the brain showed a punctate ( 3-4 mm) area of acute stroke in the right posterior frontal head region. There were old small vessel ischemic changes of a mild nature and the old posterior frontal and parietal strokes on the left as noted on the CT scan. I reviewed all CT films and reviewed the MRI of the brain including reviewing it with the patient and his . blood pressure this morning was 128/82 with a normal CBC and Chem profile. triglycerides were 70 and cholesterol 152. This morning he is asymptomatic and has no other issues. Allergies Allergy/AdvReac Type Severity Reaction Status Date / Time No Known Allergies Allergy Verified 05/18/20 14:52 Home Medications Home Medications Medication Instructions Recorded Confirmed Type Zyrtec 10 mg PO QAM PRN 08/11/18 05/18/20 History aspirin 162 mg PO QAM 08/11/18 05/18/20 History multivitamin 1 tab PO QAM 08/11/18 05/18/20 History sildenafil 50 mg PO DAILY PRN 08/11/18 05/18/20 History metronidazole 1 appln TOP BID PRN 05/18/20 05/18/20 History Patient History Medical History First degree AV block History of CVA (cerebrovascular accident) Seasonal allergies Snoring Stroke 1995--no deficits; reason for aspirin Vertebral artery stenosis Surgical History History of bilateral cataract extraction History of colonoscopy History of repair of anterior cruciate ligament of right knee History of tooth extraction wisdom teeth History of transesophageal echocardiography (MDAELINE) Family History Father , age 83 with liver cancer complications Colon cancer Stroke TIA Sister Malignant neoplasm of brain Grandmother Malignant neoplasm of brain Brother Lymphoma Myocardial infarction Mother , age 85 Chronic kidney disease (CKD) Hypertension Social History Smoking Status: Never smoker Second Hand Exposure: No; Hx Alcohol Use: Yes Alcohol type: beer, wine and hard liquor Alcohol Intake Frequency: Monthly or Less Alcohol Intake Frequency Comment: 3-4 drinks of alcohol per week at most. Never more than 1-2 per day. 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 Feels Safe at Home: Yes Safety Concerns: Feels Safe At This Time Assistive Devices: None and Glasses Review of Systems Constitutional: no fever, no fatigue and no weakness Eyes: no diplopia, no eye pain and no worsening vision Ear, Nose, Mouth, Throat: + snoring; no ear pain, no tinnitus, no hearing loss, no dizziness, no hoarseness and no dysphagia Respiratory: no cough and no dyspnea Cardiovascular: no chest pain, no palpitations and no lightheadedness Gastrointestinal: no abdominal pain, no nausea and no vomiting Genitourinary: no dysuria and no urinary incontinence Musculoskeletal: no back pain, no neck pain, no radicular pain, no joint pain and no myalgia Integumentary: no rash and no lesions Neurologic: no gait abnormality, no localized weakness, no generalized weakness, no tingling, no numbness, no tremor(s), no abnormal movements, no headache(s), no abnormal speech, no confusion and no memory loss Psychiatric: no depression, no irritability, no anxiety, no difficulty concentrating, no confusion and no hallucinations Endocrine: no fatigue and no flushing Hematologic / Lymphatic: no easy bleeding and no easy bruising Allergy / Immunological: no urticaria and no problem reported Exam (Neuro) Physical Exam: The patient is right-handed. The patient is awake, alert, and attentive. Speech is normal without any aphasia or dysarthria. he can name objects, repeat phrases, and has normal spontaneous speech. Mentation and thought processes are intact, with orientation to person, place and time, and normal fund of knowledge. Attention and concentration are normal. Mood and affect are normal and appropriate. General appearance and grooming are normal. Short and long-term memory are intact. The discs are sharp with positive venous pulsations bilaterally. There are no exudates, hemorrhages, or blood vessel changes seen. Pupils are 4 mm bilaterally and reactive to light. Extraocular eye muscles are intact without nystagmus. Visual acuity and visual khan seem normal grossly to confrontation. There are no deficits to sensation in the face in all 3 distributions of the fifth cranial nerve bilaterally. Corneal reflexes are positive bilaterally. Facial strength and symmetry was normal bilaterally. Hearing seems normal to whisper and finger rub bilaterally. Palate moves well without asymmetry. There is normal sternocleidomastoid and trapezius (shoulder shrug) strength bilaterally. Tongue is midline with good strength bilaterally. Neck has a full range of motion without discomfort. There are no cervical bruits bilaterally. There are no cranial or ocular bruits. Heart is without murmur. There is a regular rhythm and rate. Cervical, thoracic, and lumbar spine are nontender to palpation. Gait is narrow based, with good arm swing, turns, and stance. Balance is normal eyes open or closed. With outstretched arms there is no drift. There are no resting, postural, or action tremors. There is no ataxia with finger to nose testing. There is good facility in the hands. No other abnormal involuntary movements are noted. Motor strength is 5/5 diffusely in the arms bilaterally including deltoids, biceps, triceps, brachioradialis, wrist flexors and extensors, insurance checker, and intrinsic hand muscles. Motor strength is 5/5 diffusely in the legs bilaterally including hip flexors, quadriceps, hamstrings, gastrocnemius, tibialis anterior, tibialis posterior, and Peroneii muscles. Toe extensors are normal and there is good bulk in the extensor digitorum brevis muscles bilaterally. The limbs have good tone without rigidity or spasticity. There is no atrophy noted in the muscles. Muscle bulk is normal, there is no tenderness to palpation, no myotonia to percussion, and no fasciculations seen. Sensory examination is intact to touch and pin throughout all 4 limbs diffusely. Reflexes are 1/4 in the biceps, triceps, brachioradialis, quadriceps, and Achilles tendons bilaterally. There is no clonus bilaterally. Toes are downgoing with plantar stimulation bilaterally. Peripheral pulses are present and of normal quality distally in all 4 limbs. There is no peripheral edema noted in the limbs. Results & Data ([facility]) Vital Signs (Past 12 Hours) Vital Signs Temp Pulse Pulse Resp BP Pulse Ox 05/19/20 08:10 36.9 C 59 L 20 128/82 99 05/19/20 03:59 36.6 C 60 16 127/73 97 05/18/20 23:24 61 05/18/20 22:48 36.8 C 59 L 18 130/80 97 Diagnostic Findings [facility], [place] [phone] Magnetic Resonance Report Patient: MARISELA TONYAdmit Date: 05/18/20 MR#: [id number]: [address] [facility] Acct ID:[id number]: Date: 1960City Zip: [place] [address] Age: 60Location: 2S Sex: MRoom/Bed: [facility] Att Phy: Dre Joe D.ORomainDiagnosis: TIA Rebeca Phy: Marisela Gonsalves MDService Date: 05/18/20 Fam Phy:Interpreting Phy: Arya Graf MD Admit Phy: Jess Jordan MD Ordering Phy: Jess Joradn MD cc: ~ Brain MRI WITH AND WITHOUT CONTRAST HISTORY: TIA, left facial numbness TECHNIQUE: Multiplanar multisequence MRI of the brain was performed both before and after the intravenous administration of contrast. COMPARISON STUDY: Head CT 05/18/2020. FINDINGS: A single punctate foci of restricted diffusion seen within the right posterior frontal lobe on image 19 of the DWI sequences. This is consistent with an acute infarct. The midline structures are intact. There is no mass, hematoma, midline shift. Postcontrast sequences show no areas of abnormal enhancement. Old lacunar infarcts are seen within the bilateral cerebellar hemispheres. There are old small infarct within the left frontal and parietal lobes with mild surrounding gliosis. The major vascular flow voids at the skull base are well- maintained. There are few scattered punctate foci of T2 hyperintensity seen within the paratracheal white matter. These favor mild microvascular ischemic change. The paranasal sinuses and mastoid air cells are clear. Evidence for prior lens replacement. IMPRESSION: 1. A single punctate focus of restricted diffusion seen within the right posterior frontal lobe consistent with an acute infarct. This measures 4 mm. 2. Old infarcts as described above. ACT 112: Negative or not required by law. Electronically signed by: Arya Graf M.D. 05/19/2020 7:38 AM PG Care Time/CCT Total # of Minutes Spent Total Time Spent with Patient: Total time spent is greater than 50% in coordination of care (as documented) at patient's floor/unit and/or counseling patient: Coding Level of Care Code 90993 Inpt Consult Level 5 Diagnoses Acute CVA (cerebrovascular accident) I63.9 History of CVA (cerebrovascular accident) Z86.73 Vertebral artery stenosis I65.09 Snoring R06.83
[2020-05-19] MEDS ORDERED: STROKE PATIENT DISCHARGE STA (11:28)
--- NOTE | 2020-05-19 11:32 | Discharge Summary ---
Date of Service May 19, 2020 Admission HPI Per Admitting Provider This patient is a 60-year-old male with a history of CVA at age 35 who presents to the ER with an episode of left-sided facial numbness lasting about 2 hours this afternoon. He was walking with his grandson when the symptoms came on. He immediately went back home and his noticed that he had a little bit of a left-sided facial droop and he had some slurred speech. He felt like his lips were numb. He denied any other numbness or tingling anywhere else. He had no weakness or difficulty with walking or balance. He denied any headache now or then. He came to the ER and his symptoms persisted while he was in the waiting room but by the time he got back to a room in the ER, everything had resolved. He denies associated chest pain or heart palpitations, no shortness of breath. No recent illnesses, no fevers or chills. In the ER, a stroke alert was called and a CT of the head showed no hemorrhage or mass-effect and 2 small hypodense foci in the left frontal and parietal lobes with associated volume loss representing age-indeterminate infarct however the appearance favors subacute to chronic infarcts. This would correspond with his previous history of right-sided weakness from his stroke at age 35. He recalls being in the hospital for 11 days during that time and states that he was never told what the exact etiology of his stroke was. He has been on aspirin 162 mg once daily ever since. A CT angiogram of the head neck showed moderate stenosis at the origin of the left vertebral artery and mild stenosis at the origin of the right vertebral artery, but otherwise no hemodynamically significant stenoses. His blood pressure was elevated when he first arrived at 168/100. His ECG showed a sinus rhythm with first-degree AV block with biatrial enlargement. The telemetry stroke neurologist from [place] recommended completion of the stroke work-up to include a hypercoagulable work-up, echocardiogram with bubble study, and MRI. She also recommended loading with Plavix which was done with 300 mg p.o. x1 and remaining on Plavix and aspirin. He will be admitted for further TIA/CVA work-up. Principal Diagnosis CVA Discharge Exam Constitutional WD/WN, vitals as above Eyes PERRL, conjunctivae normal, anicteric sclerae ENMT external ear and nose normal, oropharynx normal Neck trachea midline, no thyromegaly Respiratory normal respiratory effort, lungs clear to auscultation Cardiovascular RRR, no murmur, no edema Gastrointestinal (Abdomen) normal bowel sounds, soft, nontender, no hepatosplenomegaly Musculoskeletal no cyanosis or clubbing, extremities motor strength 5/5 Skin no rashes, warm and dry Neurologic patellar DTR's 2+ bilat, sensation intact and PERRL, EOMI, accommodation nl, no face palsy, no dysarthria Psychiatric A+Ox3, euthymic affect Lymphatic no cervical or axillary lymphadenopathy Discharge Data Allergies Allergy/AdvReac Type Severity Reaction Status Date / Time No Known Allergies Allergy Verified 05/22/20 14:03 Consultations 05/18/20 21:13 Consult Case Management - Discharge Planning Routine Consult Neurology Routine Ordered Studies 05/18/20 14:21 CT head/brain wo con Stat 05/18/20 14:24 CT angio head w con Stat CT angio neck with con Stat 05/18/20 18:05 MR brain wo/w con Stat Hospital Course (1) Acute CVA (cerebrovascular accident): small 4mm area of ischemic stroke in frontal lobe Dr. Fortune recommends aspirin and Plavix together for three weeks then Plavix 75mg daily alone LDL and HDL are at goal, no need to increase Lipitor from 20mg daily BP is stable, no diabetes, does not smoke several recommendations to work up etiology of stroke - hypercoagulable panel was sent out - need a sleep study to look for undiagnosed sleep apnea - outpatient rhythm monitoring to rule out afib follow up with PCP and neurology (2) History of CVA (cerebrovascular accident): As noted above, at age 35, presented with right-sided hemiplegia and dysarthria which is now resolved Hypercoagulable work-up ordered (3) First degree AV block: Noted on ECG Telemetry monitoring to look for higher degree blocks, no occurrences (4) Vertebral artery stenosis: Moderate stenosis at the origin of left vertebral artery and mild stenosis at the origin the right vertebral artery Again, would not be clinically significant for today's stroke symptoms Continue antiplatelet therapy and Lipitor 20mg daily (5) Snoring: notes that he snores at night but she is unsure if she is ever heard him have apnea Would benefit from outpatient sleep study as untreated sleep apnea can put one at increased risk for atrial fibrillation (6) Seasonal allergies: Takes Zyrtec as needed-not currently needed Total Time Total Time Spent Total Time Spent (In Minutes): 32 minutes Total Time Includes: Examination of the Patient, Discharge Planning, Medication Reconciliation, Communication With Other Providers (Dr. Fortune) and Other (spoke with his at the bedside) Discharge Plan Discharge Items Patient Disposition: Home - Self-Care Reason For Visit: TIA Discharge Diagnosis: Ischemic CVA, 4mm area posterior frontal lobe Condition on Discharge: Good Goals: medical therapy with aspirin and Plavix Holter monitor Activity: Resume your previous activity Non-emergency contact: Primary Care Provider Call non-emergency contact if: you have any medication questions Follow-up/Referrals: Olge Gonsalves MD [Primary Care Provider] - 05/27/20 10:15 am (one week) Nishant Fortune MD [Physician] - 05/22/20 2:00 pm (2 weeks, Dr. Fortune wants to see for stroke follow up) Diet: Heart Healthy Addtl Attending Provider Instructions: Medications: - PLAVIX: 75mg daily, this will replace aspirin - ASPIRIN: take 81mg (one tablet) daily for 21 days with Plavix then stop, use Plavix alone after that CVA: small 4mm area of stroke in right posterior frontal lobe Dr. Fortune recommends taking aspirin 81mg and Plavix 75mg together x 3 weeks then stop aspirin and use Plavix alone no need for Lipitor as your LDL and HDL are both at goal, continue low fat, low cholesterol diet blood pressure is well controlled no evidence of diabetes blood work sent out to work up possible genetic pre-disposition for clotting, these results will take a week to return we recommend getting a sleep study done as outpatient to rule out sleep apnea we recommend getting a Holter Monitor, you can take this off at work since you have restrictions, but otherwise wear it when at home and on weekends echocardiogram with bubble study is pending report but will not change your treatment, will follow up this report hold Sildenafil for 2 weeks as you recover from small stroke, don't want to drop your blood pressure dramatically Risk Factors for Stroke: You can reduce your chances of stroke by working with your medical provider to adopt a healthy lifestyle. Some specific ways to lower your chance of stroke are: * If you are a smoker, now is the time to stop smoking cigarettes * If you are diabetic, improve the control of your blood sugars * Avoid excessive amounts of alcohol * Control high blood pressure * Lose weight if you are overweight * Be sure to lead an active lifestyle * Eat a healthy diet low in salt, cholesterol and fat You should know about other risk factors for stroke that you are unable to control. These include: * Age 55 years or older * Male gender * Certain racial groups: , or / * Family History of Stroke, Mini stroke or Heart Attack * Sickle Cell Disease Follow Up: It is important for you to keep your follow up appointments with your medical provider. Who to Call and When: Medical Emergencies: Call 911 immediately if you experience any of the following warning signs and symptoms of Stroke: * Sudden numbness or weakness of the face, arm or leg, especially on one side of the body * Sudden confusion, trouble speaking or understanding * Sudden trouble seeing in one or both eyes * Sudden trouble walking, dizziness, loss of balance or coordination * Sudden severe headache with no cause Do not delay calling 911 if you experience any warning signs or symptoms of a stroke. Delay in seeking medical attention may affect what treatments can be given to you. . Pending Studies at Discharge: Yes Studies:: hypercoagulable work up echo with bubble study Stand-Alone Forms: Medications to Prevent Stroke, My [facility] [employer], Smoking Cessation Medications and DC Order Prescriptions: New clopidogrel 75 mg Tablet 75 mg PO QAM 30 Days Qty: 30 RF: 3 aspirin 81 mg Tablet,Delayed Release (Dr/Ec) 81 mg PO QAM 21 Days Qty: 21 RF: 0 Continued multivitamin Tablet 1 tab PO QAM RF: 0 Zyrtec 10 mg Capsule 10 mg PO QAM PRN (Reason: Allergy Symptoms) RF: 0 metronidazole 0.75 % cream 1 appln TOP BID PRN (Reason: Skin Irritation) RF: 0 Discontinued sildenafil 50 mg Tablet 50 mg PO DAILY PRN (Reason: Sexual Activity) RF: 0 aspirin 81 mg Tablet,Delayed Release (Dr/Ec) 162 mg PO QAM RF: 0 No Action atorvastatin 20 mg tablet 20 mg PO DAILY Qty: 30 RF: 11 Discharge Orders: Discharge Order (Routine); Ordered 05/19/20 Ordered By: Dre Chavez/Other Patient Handouts: Symptoms of Stroke, What Is a TIA?, Clopidogrel tablets, Aspirin capsules or tablets extended release Admission Data Admit Date/Time: 05/18/20 17:48 Attending Provider: Dre Joe Admit Provider: Jess Jordan Primary Care Provider: Oleg Gonsalves Other Providers: Jose Guadalupe Peck Other Interventions: Discharge Summary Assessment (RN) Last Done: 05/19/20 12:05 Coding Level of Care Code D/C Day Management >30 mins Diagnoses Acute CVA (cerebrovascular accident) I63.9 History of CVA (cerebrovascular accident) Z86.73 First degree AV block I44.0 Vertebral artery stenosis I65.09 Snoring R06.83 Seasonal allergies J30.2
--- NOTE | 2020-05-19 11:42 | Pharmacy Report ---
Pharmacist Stroke Counseling - Date of Service May 19, 2020 - Scope: Pharmacy has been consulted to provide medication discharge counseling for this patient admitted with ischemic stroke as per the Pharmacist Discharge Counseling for Stroke Patients Protocol. - Medications on Discharge: Home Medications Medication Instructions Recorded Confirmed Zyrtec 10 mg PO QAM PRN 08/11/18 05/18/20 aspirin 162 mg PO QAM 08/11/18 05/18/20 multivitamin 1 tab PO QAM 08/11/18 05/18/20 sildenafil 50 mg PO DAILY PRN 08/11/18 05/18/20 metronidazole 1 appln TOP BID PRN 05/18/20 05/18/20 New Rx's Medication Instructions Recorded clopidogrel 75 mg PO QAM 30 Days #30 tab 05/19/20 - Action: The above medications, specifically ones for stroke treatment/prophylaxis, have been reviewed in detail with the patient prior to discharge. This includes indication, common adverse reactions, drug interactions, and medication administration. Medication counseling has been employed using the teach-back method to ensure understanding. - Outcome: The patient demonstrated understanding of the medications. Additional comments: - Counseling completed via telephone secondary to the COVID-19 pandemic - Patient was given an opportunity to have all questions answered - Patient demonstrated good knowledge of medication changes upon discharge Thank you for allowing pharmacy to be involved in the care of this patient. Please call [phone] with any additional questions
--- NOTE | 2020-05-19 14:39 | XCELERA ---
[id number]
--- NOTE | 2020-05-20 05:33 | Electrocardiogram Report ---
Test Reason : Blood Pressure : / mmHG Vent. Rate : 061 BPM Atrial Rate : 061 BPM P-R Int : 218 ms QRS Dur : 088 ms QT Int : 424 ms P-R-T Axes : 069 024 041 degrees QTc Int : 426 ms Sinus rhythm with 1st degree A-V block Biatrial enlargement Abnormal ECG No previous ECGs available Confirmed by Bashir Herron ([id number]) on 05/20/2020 5:32:39 AM Referred By: REFERRED SELF Confirmed By:Bashir Herron
[2020-05-22 01:40] LABS: B2 Glycoprotein IgG <9 SGU (<=20); B2 Glycoprotein IgM <9 SMU (<=20); PTT LA Screen 33 sec (<=40)
[2020-05-23 13:46] LABS: Anti Cardiolipin Ab IgG <14 GPL; Anti Cardiolipin Ab IgM <12 MPL; Anti-Thrombin III Activity 104 % normal (80-135); Protein S Functional(Activity) 96 % (70-150)
== END 2020-05-19 12:52 | disposition home or self-care (01) | DRG 66 ==
LOC: ED 13:52 → 2S 17:48 → SUATTDRO 17:48 → 2S 18:54